=== PATIENT | male | born 1990 | race Caucasian/White ===

== ENCOUNTER 2020-04-26 22:13 | Emergency (ER) | payer SELFPAY ==
[~2020-04-26] VITALS: Ht 180.3 cm; Wt 90.5 kg
[2020-04-26 22:40] VITALS: BP 131/90
[2020-04-26] MEDS ORDERED: LIDOCAINE 1%, 10ML INFIL ONE (23:00)
[2020-04-26] MEDS ORDERED: LIDOCAINE-MPF 1%, 5ML ONE (23:39)
[2020-04-26] MEDS ORDERED: SULFAMETH./TRIMETHOPRIM DS 800MG/160MG TABLET ONE (23:59)
[2020-04-26] MEDS ORDERED: CEFTRIAXONE 1,000 MG ONE (23:59)
[2020-04-27] MEDS ORDERED: CEFTRIAXONE 1,000 MG IM ONE
[2020-04-27] MEDS ORDERED: SULFAMETH./TRIMETHOPRIM DS 800MG/160MG TABLET PO ONE
[2020-04-27] MEDS ORDERED: HYDROcodone/APAP 5/325 TABLET ONE (00:07)
--- NOTE | 2020-04-27 00:10 | NUR ---
MEDICATED PER ORDER FOR PAIN/ABX.
[2020-04-27] MEDS ORDERED: HYDROcodone/APAP 5/325 TABLET PO ONE (00:30)
--- NOTE | 2020-04-27 00:33 | NUR ---
TASK RN: DC EDUCATION PROVIDED BY JAIR WRAY. PT AMBULATED STEADILY TO DC. NAD NOTED.
== END 2020-04-27 00:39 | disposition home or self-care (01) ==
LOC: ED 22:43
DX: L02.414 Cutaneous abscess of left upper limb (principal); L03.114 Cellulitis of left upper limb
CPT/HCPCS: 10060; 96372; 99283; J0696

== ENCOUNTER 2020-04-29 04:07 | Emergency (ER) | payer SELFPAY ==
[~2020-04-29] VITALS: Ht 180.3 cm; Wt 91.9 kg
--- NOTE | 2020-04-29 04:27 | NUR ---
Patient comes in to get wound on left forearm repacked. States that it fell out. Provider at bedside.
[2020-04-29 04:35] VITALS: BP 125/80
== END 2020-04-29 04:37 | disposition home or self-care (01) ==
LOC: ED 04:35
DX: L02.414 Cutaneous abscess of left upper limb (principal)
CPT/HCPCS: 99282

== ENCOUNTER 2020-05-06 21:22 | Emergency (ER) | payer SELFPAY ==
[~2020-05-06] VITALS: Ht 180.3 cm; Wt 89.3 kg
[2020-05-06] MEDS ORDERED: ACETAMINOPHEN 500 MG TABLET PO ONE (21:30)
[2020-05-06 22:19] LABS: BASOPHILS % (AUTO) 1 % (0-1); EOSINOPHILS % (AUTO) 3 % (1-7); LYMPHOCYTES % (AUTO) 29 % (22-44); MEAN CORPUSCULAR HEMOGLOBIN 27.1 pg (27.5-34.5); MEAN CORPUSCULAR HGB CONC 33.3 g/dL (33.2-36.2); MEAN PLATELET VOLUME 9.2 fL (7.4-10.4); MONOCYTES % (AUTO) 8 % (2-9); NEUTROPHILS % (AUTO) 60 % (42-75); PLATELET COUNT 304 x10^3/uL (130-400); RED BLOOD COUNT 5.16 x10^6/uL (4.38-5.82); RED CELL DISTRIBUTION WIDTH 13.9 % (9.4-14.8)
[2020-05-06 22:24] LABS: ANION GAP 7 mmol/L (5-15); CHLORIDE 102 mmol/L (98-107); CREATININE 0.89 mg/dL (0.7-1.3)
[2020-05-06] MEDS ORDERED: ACETAMINOPHEN 500 MG TABLET ONE (23:30)
--- NOTE | 2020-05-06 23:37 | NUR ---
pt called to room from lobby
[2020-05-06 23:39] LABS: MD SCAN
[2020-05-07] MEDS ORDERED: CEPHALEXIN 500 MG CAPSULE PO ONE
[2020-05-07] MEDS ORDERED: SULFAMETH./TRIMETHOPRIM DS 800MG/160MG TABLET PO ONE
[2020-05-07] MEDS ORDERED: SULFAMETH./TRIMETHOPRIM DS 800MG/160MG TABLET ONE (00:02)
[2020-05-07] MEDS ORDERED: CEPHALEXIN 500 MG CAPSULE ONE (00:02)
[2020-05-07 00:09] VITALS: BP 122/77
== END 2020-05-07 00:12 | disposition home or self-care (01) ==
LOC: ED 05-07
DX: L03.115 Cellulitis of right lower limb (principal); M79.89 Other specified soft tissue disorders; M25.571 Pain in right ankle and joints of right foot; F17.210 Nicotine dependence, cigarettes, uncomplicated
CPT/HCPCS: 36415; 80048; 85025; 99284; 99406